=== PATIENT | female | born 1965 | race Caucasian/White ===

== ENCOUNTER → 2016-07-25 | Outpatient (CLI) | payer OTHER ==
[~2016-07-25] MED LIST: ALPR0.25 PO; AMPH10TA2 PO; BTLAI; CYCL10TA6 PO; ERTA1INJ IV; METH4PAK PO; MISCCAP80 PO; MULT-513 PO; PRLSR20 PO
--- NOTE | 2016-07-25 11:57 | DIAGNOSTIC IMAGING REPORT ---
ADDENDUM Addendum: A study from October 29, 2013 has become available for review. The C4-5 minimal circumferential disc bulge remain stable. The previously identified disc bulge at C5-6 level has essentially resolved. The impression remains unchanged. There are minor degenerative changes without evidence of focal disc herniation. There is no significant spinal or foraminal stenosis. Electronically signed by: Helio Phillips M.D. 07/25/2016 3:11 PM Dictated Date/Time: 07/25/2016 3:07 PM ORIGINAL REPORT MRI CERVICAL WITHOUT CONTRAST CLINICAL HISTORY: Neck pain with bilateral arm radiculopathy. TECHNIQUE: Sagittal and axial T1, T2 and STIR images were obtained. COMPARISON STUDY: No previous studies for comparison. There are no suspicious areas of marrow replacement. No intrinsic cervical cord lesions are visualized. C2-3: There is no evidence of disc bulge or focal herniation. There is no spinal or foraminal stenosis. C3-4: There is a minimal circumferential disc bulge. There is no significant spinal or foraminal stenosis C4-5: There is a minimal circumferential disc bulge. There is no significant spinal or foraminal stenosis C5-6 :There are no disc bulges or focal herniations. There is no spinal or foraminal stenosis. C6-7: There is no evidence of disc bulge or focal herniation. There is no evidence of spinal or foraminal stenosis. 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 No disc herniations are visualized. There is no spinal or foraminal stenosis. IMPRESSION: 1. C7-T1 segmentation anomaly. Minor degenerative changes. No disc herniations identified. No significant spinal or foraminal stenosis. Electronically signed by: Helio Phillips M.D. 07/25/2016 11:56 AM Dictated Date/Time: 07/25/2016 11:52 AM
== END | disposition home or self-care (01) ==
LOC: C.MRI 10:49
PROVIDERS: ATTEND Orthopaedic Surgery Orthopaedic Surgery of the Spine
DX: M47.22 Other spondylosis with radiculopathy, cervical region (principal)

== ENCOUNTER 2016-08-06 10:25 | Emergency (ER) | payer OTHER ==
[~2016-08-06] VITALS: Ht 160 cm; Wt 72.6 kg
[~2016-08-06 10:25] MED LIST changes: -CYCL10TA6 PO; -METH4PAK PO
[2016-08-06 10:35] VITALS: TEMP 36.6; Ht 160 cm; Wt 72.6 kg
[2016-08-06] MEDS ORDERED: DEXAMETHASONE SOD INJ 10 MG/ML VIAL IM STA (11:02)
--- NOTE | 2016-08-06 11:48 | DIAGNOSTIC IMAGING REPORT ---
LUMBAR SPINE 5 VIEWS CLINICAL HISTORY: Low back pain. FINDINGS: 5 views of the lumbar spine are correlated with abdominal CT dated 02/10/2016. The skeletal structures are osteopenic. There is no radiographic evidence of fracture or malalignment. Vertebral body height and alignment are maintained. The transverse and spinous processes are intact. There is no evidence of spondylolysis. The intervertebral disc spaces are well-maintained. Small anterior osteophytes are seen throughout. The visualized bony pelvis appears intact. There is a nonobstructed abdominal bowel gas pattern. There is moderate to severe constipation. IMPRESSION: 1. No acute bony abnormality is seen involving the lumbosacral spine. 2. Moderate to severe constipation. Electronically signed by: Monster Steele M.D. 08/06/2016 11:47 AM Dictated Date/Time: 08/06/2016 11:46 AM
[2016-08-06] MEDS ORDERED: KETOROLAC TROMETHAMINE 60 MG/2 ML VIAL IM STA (12:10)
[2016-08-06 12:20] LABS: URINE APPEARANCE CLEAR (CLEAR); URINE BILIRUBIN NEG (NEG); URINE COLOR YELLOW; URINE NITRITE NEG (NEG); URINE SPECIFIC GRAVITY 1.008 (1.000-1.030); UROBILINOGEN NEG (NEG); ZZUR CULT IF INDIC CLEAN CATCH NO
[2016-08-06 12:38] LABS: MANUAL MICROSCOPIC REQUIRED? NO; REVIEW REQ? NO
[2016-08-06] MEDS ORDERED: METH4PAK PO (12:53)
[2016-08-06] MEDS ORDERED: CYCL10TA6 PO (12:53)
--- NOTE | 2016-08-06 12:54 | EMERGENCY ROOM VISIT NOTE ---
History First contact with patient: 10:50 Chief Complaint: BACK PAIN Stated Complaint: CAN'T SIT OR BEND-FELT POP IN BACK FROM SNEEZING History of Present Illness The patient is a 51 year old female who presents to the Emergency Room via private vehicle with complaints of "can't sit or bend, felt pop in back from sneezing". The patient states that today around 7:45 AM, she was at home brushing her teeth, when she sneezed, and felt a pop in her low back. She then noted immediate pain in this region. She points to the lumbar paraspinous musculature as well as the spine is location of pain that she rates as a 10/10. She notes that for the past while, when she jogs the toes will go numb, and she also follows with Dr. Jett for her cervical injuries. She notes that most of her back pain today comes from when she tries to stand from a sitting position. She also cannot afford flax at the lumbar spine. She denies any lower extremity weakness, bowel or bladder incontinence, numbness or tingling in the genital region, urinary symptoms, fevers, chills, chest pain, shortness of breath, nausea, vomiting, abdominal pain. Review of Systems A complete 10-point Review of Systems was discussed with the patient, with pertinent positives and negatives listed in the History of Present Illness. All remaining Review of Systems questions can be considered negative unless otherwise specified. Past Medical/Surgical History Medical Problems: (1) Infection due to ESBL-producing Escherichia coli (2) Von Willebrand disease Family History FH: colonic polyps Social History Smoking Status: Never Smoker Drug Use: none Marital Status: Housing Status: lives with family Occupation Status: employed Current/Historical Medications Scheduled Botulinum Toxin Type A (Botox), 1 DOSE UNKNOWN UD Cyclobenzaprine Hcl (Flexeril), 10 MG PO TID Methylprednisolone (Medrol Dosepak), 0 PO DAILY Multivitamins/Minerals (Mvi With Minerals), 1 TAB PO DAILY Scheduled PRN Amphetamine-Dextroamphetamine 10MG (Adderall 10MG), 10 MG PO UD PRN for NEEDED Allergies Coded Allergies: No Known Allergies (Unverified , 08/06/16) Physical Exam Vital Signs Date Time Temp Pulse Resp B/P Pulse Ox O2 Delivery O2 Flow Rate FiO2 08/06/16 13:09 67 20 123/77 95 08/06/16 10:35 36.6 80 18 136/83 97 Room Air Physical Exam VITAL SIGNS - Vital signs and nursing notes were reviewed. Patient is afebrile , normotensive, non-tachycardic and is saturating well on room air 97%. GENERAL -51-year-old female appearing her stated age who is in no acute distress. Communicates well with provider and answers questions appropriately. SKIN - Without rashes. Skin overlying the lumbar region is unremarkable. HEAD - NC/AT. EYES - Sclera anicteric. Palpebral conjunctiva pink and moist with no injection noted. NECK - Neck with FROM. Supple to palpation. No lymphadenopathy noted. No nuchal rigidity. No C-spine tenderness. LUNGS - Chest wall symmetric without accessory muscle use, intercostals retractions, or central cyanosis. Normal vesicular breath sounds CTA B/L. No wheezes, rales, or rhonchi appreciated. CARDIAC - RRR with S1/S2. No murmur, rubs, or gallops appreciated. ABDOMEN - Abdominal contour without pulsations or visible masses. BS normoactive all four quadrants. No tenderness, palpable masses, hepatosplenomegaly, or ascites noted. MUSCULOSKELETAL: No tenderness to palpation overlying the lumbar spinous processes or paraspinous musculature. EXTREMITIES - No clubbing or peripheral cyanosis. No pretibial edema present. Patient is neurovascularly intact in the lower extremities bilaterally. +5/5 strength noted in UE/LE bilaterally. NEUROLOGIC - Cranial nerves II through XII grossly intact. Sensory intact to light touch throughout. Patellar reflexes +2/4. PSYCH - Pt is very pleasant and interacts well with examiner. Medical Decision & Procedures ER Provider Diagnostic Interpretation: LUMBAR SPINE 5 VIEWS CLINICAL HISTORY: Low back pain. FINDINGS: 5 views of the lumbar spine are correlated with abdominal CT dated 02/10/2016. The skeletal structures are osteopenic. There is no radiographic evidence of fracture or malalignment. Vertebral body height and alignment are maintained. The transverse and spinous processes are intact. There is no evidence of spondylolysis. The intervertebral disc spaces are well-maintained. Small anterior osteophytes are seen throughout. The visualized bony pelvis appears intact. There is a nonobstructed abdominal bowel gas pattern. There is moderate to severe constipation. IMPRESSION: 1. No acute bony abnormality is seen involving the lumbosacral spine. 2. Moderate to severe constipation. Electronically signed by: Monster Steele M.D. 08/06/2016 11:47 AM Dictated Date/Time: 08/06/2016 11:46 AM Laboratory Results Test 08/06/16 11:56 Urine Color YELLOW Urine Appearance CLEAR (CLEAR) Urine pH 8.0 (4.5-7.5) Urine Specific [place] 1.008 (1.000-1.030) Urine Protein NEG (NEG) Urine Glucose (UA) NEG (NEG) Urine Ketones NEG (NEG) Urine Occult Blood NEG (NEG) Urine Nitrite NEG (NEG) Urine Bilirubin NEG (NEG) Urine Urobilinogen NEG (NEG) Urine Leukocyte Esterase NEG (NEG) Medications Administered Medications (Trade) Dose Ordered Sig/Bryant Route Start Time Stop Time Status Last Admin Dose Admin Dexamethasone Sodium Phosphate (Decadron Inj) 10 mg NOW STAT IM 08/06/16 11:02 08/06/16 11:11 DC 08/06/16 12:01 10 MG Ketorolac Tromethamine (Toradol Inj) 60 mg NOW STAT IM 08/06/16 12:10 08/06/16 12:12 DC 08/06/16 12:27 60 MG Medical Decision Patient was seen and evaluated as above. After obtaining a thorough history and physical examination radiographs were obtained of the lumbar spine, and a urine was also obtained. Patient presented with what is likely either a small bulging disc, or lumbar strain. I do not suspect any emergent intra-abdominal process. Radiograph was obtained with results as above. It appears that the patient does have moderate to severe constipation, but has bowel movements daily. No complaints in this region. The patient is nontoxic in appearance, and is stable vital signs. She was given Decadron, followed by an injection of Toradol after 4 hours had passed from her previous ibuprofen dosage. She was reevaluated and was feeling better. Urine is negative for acute process. Small elevation in pH. Patient was educated upon MRI, and at this time I believe this can be deferred as it is not necessary normal interchange agent. She has no cauda equina symptoms or physical examination findings. She is nontoxic. No abdominal findings. The patient will also be provided with a short-term prescription for Medrol Dosepak, and Flexeril. This is to help with inflammation, as well as help to alleviate the musculature tension in her lumbar spine. Patient was educated upon today's finest, was educated upon worrisome symptoms which to return, was educated upon management, had questions prior to discharge and was discharged home in good condition. In evaluation treatment this patient the following differential diagnoses were entertained: AAA, intra-abdominal emergent process, constipation, bowel obstruction, renal causes, UTI, lumbar strain, disc herniation, among others. Impression Primary Impression: Strain of lumbar region Departure Information Dispostion Home / Self-Care Condition GOOD Prescriptions Methylprednisolone (MEDROL DOSEPAK) 4 Mg Gibran 0 PO DAILY, #1 PKT Prov: Keenan Urbina PA-C 08/06/16 Cyclobenzaprine Hcl (FLEXERIL) 10 Mg Tab 10 MG PO TID for 5 Days, #15 TAB Prov: Keenan Urbina PA-C 08/06/16 Referrals Kathy Mac (PCP) Reg Jett D.O. Patient Instructions [facility] Additional Instructions You have been treated in the Emergency Department for Back Pain. You have been prescribed Flexeril (cyclobenzaprine) 1 tabs orally, three times per day. Do NOT exceed 30 mg (6 tabs) per day. Take your first dose at bedtime as it can make you drowsy. Always take all medications as prescribed. You have been prescribed a Medrol Dosepak. Take this medication as prescribed. You should take the COMPLETE 6-day course of this medication. This is an anti- inflammatory medicine that will help to minimize your symptoms. For pain control, you can use the following [id number] medicines (if >12 yo): - Regular strength (325mg/tab) Tylenol (acetaminophen) 2 tabs every 4-6 hours as needed. Do not exceed 12 tablets in a 24 hour period. Avoid taking more than 3 grams (3000 mg) of Tylenol per day. This includes any other sources of acetaminophen you may take on a regular basis. - Regular strength (200 mg/tab) Advil (ibuprofen) 1-2 tabs every 4-6 hours as needed. Do not exceed a dose of 3200 mg per day. If this is an acute injury, ice can be applied to the area of pain for the first 3 days to help decrease pain and inflammation. After the first 3 days, a heating pad can be used over the area for continued soothing relief. You should schedule a follow-up appointment with Dr. Jett as we discussed by calling his office later today. Return to the Emergency Department if your current symptoms worsen despite treatment course outlined above, or if you develop any of the following symptoms : intractable pain despite aforementioned treatment course, loss of control of your bowel or bladder, numbness or tingling in your groin, or development of a fever. Please return to emergency department with any new/concerning symptoms.
[2016-08-06 13:09] VITALS: BP 123/77; PULSE 67; O2SAT 95
== END 2016-08-06 13:11 | disposition home or self-care (01) ==
LOC: C.EDB 10:27 → C.EDD 13:11
DX: S39.012A Strain of muscle, fascia and tendon of lower back, initial encounter (principal); X50.9XXA Other and unspecified overexertion or strenuous movements or postures, initial encounter; D68.0 Von Willebrand disease; K59.00 Constipation, unspecified

== ENCOUNTER → 2016-11-10 | Outpatient (CLI) | payer OTHER ==
[~2016-11-10] MED LIST changes: -ALPR0.25 PO; -ERTA1INJ IV; -MISCCAP80 PO; -PRLSR20 PO
[2016-11-10 08:52] LABS: CHOLESTEROL/HDL RATIO 2.4
== END | disposition home or self-care (01) ==
LOC: C.LAB 07:59
PROVIDERS: ATTEND Nurse Practitioner Family
DX: Z13.1 Encounter for screening for diabetes mellitus (principal); Z13.220 Encounter for screening for lipoid disorders

== ENCOUNTER → 2017-01-25 | Outpatient (CLI) | payer OTHER | END | disposition home or self-care (01) | LOC: C.PAPS 14:41 | PROVIDERS: ATTEND Obstetrics & Gynecology | DX: Z01.419 Encounter for gynecological examination (general) (routine) without abnormal findings (principal) ==

== ENCOUNTER → 2017-01-25 | Outpatient (CLI) | payer OTHER ==
[2017-01-25 14:22] LABS: URINE APPEARANCE CLEAR (CLEAR); URINE BILIRUBIN NEG (NEG); URINE COLOR YELLOW; URINE NITRITE NEG (NEG); URINE PH 7.5 (4.5-7.5); UROBILINOGEN NEG (NEG)
[2017-01-25 14:30] LABS: MANUAL MICROSCOPIC REQUIRED? NO; REVIEW REQ? NO
== END | disposition home or self-care (01) ==
LOC: C.LABSPEC 13:49
PROVIDERS: ATTEND Obstetrics & Gynecology
DX: N39.0 Urinary tract infection, site not specified (principal)

== ENCOUNTER → 2017-02-13 | Outpatient (CLI) | payer OTHER | END | disposition home or self-care (01) | LOC: C.PATHSPEC 14:11 | PROVIDERS: ATTEND Obstetrics & Gynecology | DX: N95.0 Postmenopausal bleeding (principal); N85.8 Other specified noninflammatory disorders of uterus ==

== ENCOUNTER → 2017-02-14 | Outpatient (CLI) | payer OTHER ==
--- NOTE | 2017-02-14 14:34 | MAMMOGRAPHY REPORT ---
BILATERAL DIGITAL SCREENING MAMMOGRAM TOMOSYNTHESIS WITH CAD: 02/14/2017 CLINICAL HISTORY: Routine screening. Patient has no complaints. TECHNIQUE: Breast tomosynthesis in addition to standard 2D mammography was performed. Current study was also evaluated with a Computer Aided Detection (CAD) system. COMPARISON: Comparison is made to exams dated: 02/27/2016 mammogram, 02/27/2016 stereotactic biopsy, 02/07/2016 mammogram, 02/02/2016 mammogram, 01/24/2015 mammogram, and 01/20/2014 mammogram - [facility]. BREAST COMPOSITION: There are scattered areas of fibroglandular density in both breasts. FINDINGS: No suspicious masses, calcifications, or areas of architectural distortion are noted in ei ther breast. There has been no significant interval change compared to prior exams. Biopsy marker cl ips are again seen within bilateral upper outer quadrants. Scattered bilateral benign appearing calc ifications are not significantly changed. Bilateral subpectoral saline implants are intact. IMPRESSION: ACR BI-RADS CATEGORY 2: BENIGN There is no mammographic evidence of malignancy. A 1 year screening mammogram is recommended. The pa tient will receive written notification of the results. Approximately 10% of breast cancers are not detected with mammography. A negative mammographic report should not delay biopsy if a clinically suggestive mass is present. Katiuska Chand M.D. /:02/14/2017 09:50:22 Sample Hand: Shara BERNABE(Anni)(M), [facility] letter sent: Normal 1/2 BI-RADS Code: ACR BI-RADS Category 2: Benign
== END | disposition home or self-care (01) ==
LOC: C.MAMM 08:59
PROVIDERS: ATTEND Nurse Practitioner Family
DX: Z12.31 Encounter for screening mammogram for malignant neoplasm of breast (principal)